=== PATIENT | male | born 1975 | race American Indian/Alaskan Native ===

== ENCOUNTER 2018-04-10 08:59 | Emergency (ER) | payer SELFPAY ==
[2018-04-10 09:24] VITALS: BP 138/91
[2018-04-10] MEDS ORDERED: TORADOL IM ONE (10:56)
--- NOTE | 2018-04-10 11:02 | Emergency Department Report ---
ED Back Pain/Injury HPI - General Chief Complaint: Extremity Injury, Lower Stated Complaint: RT HIP PAIN Time Seen by Provider: 04/10/18 10:47 Source: patient Limitations: No Limitations - History of Present Illness Initial Comments: This is a 42-year-old male nontoxic, well nourished in appearance, no acute signs of distress presents to the ED with c/o of acute on chronic lower back pain. Patient stated that the past 2 weeks he was moving around and developed this pain. Patient states has history of sciatica nerve pain which is similar symptoms as today. Patient stated that he was diagnosed with bulging L4-L5 and stated that he needs to have surgery. Patient states that pain radiates through to his right hip/lower extremity. Patient denies any trauma. Denies any bladder or bowel instability. Patient denies any urinary symptoms. Denies any fever, chills, nausea, vomiting, headache, stiff neck, chest pain or shortness of breath. Patient denies any numbness or tingling. Patient stated allergies to Aspirin but stated that he takes Motrin. MD Complaint: back pain -: week(s) (2) Similar Symptoms Previously: Yes Place: home Radiation: right leg Severity: mild Severity scale (0 -10): 8 Quality: aching Consistency: constant Improves With: immobilization, supine, sitting upright Worsens With: movement, walking Associated Symptoms: denies other symptoms. denies: confusion, weakness, chest pain, numbness, difficulty walking, cough, difficulty urinating, diaphoresis, incontinence, fever/chills, constipation, headaches, abdominal pain, loss of appetite, malaise, nausea/vomiting, rash, seizure, shortness of breath, syncope - Related Data Previous Rx's Medication Instructions Recorded Last Taken Type Cyclobenzaprine [Flexeril] 10 mg PO QHS PRN #10 tablet 04/10/18 Unknown Rx Ibuprofen [Motrin] 600 mg PO Q8H PRN #30 tablet 04/10/18 Unknown Rx Allergies Allergy/AdvReac Type Severity Reaction Status Date / Time aspirin AdvReac Nausea Verified 04/10/18 09:22 ED Review of Systems ROS: Stated complaint: RT HIP PAIN Other details as noted in HPI Constitutional: denies: chills, fever Eyes: denies: eye pain, eye discharge, vision change ENT: denies: ear pain, throat pain Respiratory: denies: cough, shortness of breath, wheezing Cardiovascular: denies: chest pain, palpitations Endocrine: no symptoms reported Gastrointestinal: denies: abdominal pain, nausea, diarrhea Genitourinary: denies: urgency, dysuria Musculoskeletal: back pain. denies: joint swelling, arthralgia Skin: denies: rash, lesions Neurological: denies: headache, weakness, paresthesias Psychiatric: denies: anxiety, depression Hematological/Lymphatic: denies: easy bleeding, easy bruising ED Past Medical Hx - Past Medical History Hx Hypertension: Yes Hx Diabetes: Yes - Surgical History Past Surgical History?: No - Social History Smoking Status: Never Smoker Substance Use Type: None - Medications Home Medications: Home Medications Medication Instructions Recorded Confirmed Last Taken Type Cyclobenzaprine [Flexeril] 10 mg PO QHS PRN #10 tablet 04/10/18 Unknown Rx Ibuprofen [Motrin] 600 mg PO Q8H PRN #30 tablet 04/10/18 Unknown Rx ED Physical Exam - General Limitations: No Limitations General appearance: alert, in no apparent distress - Head Head exam: Present: atraumatic, normocephalic - Eye Eye exam: Present: normal appearance - ENT ENT exam: Present: mucous membranes moist - Neck Neck exam: Present: normal inspection, full ROM. Absent: tenderness, meningismus, lymphadenopathy - Respiratory Respiratory exam: Present: normal lung sounds bilaterally. Absent: respiratory distress, wheezes, rales, rhonchi, stridor, chest wall tenderness, accessory muscle use, decreased breath sounds, prolonged expiratory - Cardiovascular Cardiovascular Exam: Present: regular rate, normal rhythm, normal heart sounds. Absent: irregular rhythm, systolic murmur, diastolic murmur, rubs, gallop - GI/Abdominal GI/Abdominal exam: Present: soft, normal bowel sounds. Absent: distended, tenderness, guarding, rebound, rigid, diminished bowel sounds - Rectal Rectal exam: Present: deferred - Extremities Exam Extremities exam: Present: normal inspection, full ROM, normal capillary refill. Absent: tenderness - Back Exam Back exam: Present: normal inspection, full ROM, paraspinal tenderness (right sided lumbar paraspinal). Absent: tenderness, CVA tenderness (R), CVA tenderness (L), muscle spasm, vertebral tenderness, rash noted - Expanded Back Exam Expanded Back exam: Absent: saddle anesthesia Back exam: Negative Straight Leg Raising: Left, Right - Neurological Exam Neurological exam: Present: alert, oriented X3, normal gait - Psychiatric Psychiatric exam: Present: normal affect, normal mood - Skin Skin exam: Present: warm, dry, intact, normal color. Absent: rash ED Course Vital Signs 04/10/18 09:23 Temperature 99.4 F Pulse Rate 105 H Respiratory 18 Rate Blood Pressure 138/91 O2 Sat by Pulse 100 Oximetry - Reevaluation(s) Reevaluation #1: 04/10/18 11:02 Patient is speaking in full sentences with no signs of distress noted. ED Medical Decision Making - Medical Decision Making This is a 42-year-old male that presents with low back strain. Patient is stable was examined by me. There is no spinal tenderness. There is no cauda equina syndrome during examination. No bladder or bowel instability. Patient received Toradol 30 mg IM in the ED which preceded his symptoms has resolved and subsided. Patient is discharged with muscle relaxant and Motrin. Patient was instructed not to operate any machinery while taking muscle relaxant as they cause her drowsiness. Patient was referred to Follow-up with a primary care doctor in 3-5 days or if symptoms worsen and continue return to emergency room as soon as possible. At time of discharge, the patient does not seem toxic or ill in appearance. No acute signs of distress noted. Patient agrees to discharge treatment plan of care. No further questions noted by the patient. This chart is dictated with using [employer] Critical care attestation.: If time is entered above; I have spent that time in minutes in the direct care of this critically ill patient, excluding procedure time. ED Disposition Clinical Impression: Low back strain Qualifiers: Encounter type: initial encounter Qualified Code(s): S39.012A - Strain of muscle, fascia and tendon of lower back, initial encounter Disposition: - TO HOME OR SELFCARE Is pt being admited?: No Does the pt Need Aspirin: No Condition: Stable Instructions: Low Back Strain (ED), Cyclobenzaprine (By mouth) Additional Instructions: Follow-up with your primary care doctor in 3-5 days or if symptoms worsen such as bladder or bowel stability, chest pain, short of breath, numbness or tingling sensation in extremities, headache, dizziness, visual changes, nausea vomiting, or abdominal pain, return back to emergency room as was possible. Take ibuprofen and Flexeril as prescribed. Do not operate heavy machinery while taking Flexeril due to sedation Prescriptions: Cyclobenzaprine [Flexeril] 10 mg PO QHS PRN #10 tablet PRN Reason: Muscle Spasm Ibuprofen [Motrin] 600 mg PO Q8H PRN #30 tablet PRN Reason: Pain Referrals: PRIMARY CAREMD [Primary Care Provider] - 3-5 Days ASH SHEPARD MD [Staff Physician] - 3-5 Days [facility] [Outside] - 3-5 Days [facility] [Outside] - 3-5 Days Forms: Work/School Release Form(ED)
== END 2018-04-10 11:19 | disposition home or self-care (01) ==
LOC: ED 08:59
DX: S39.012A Strain of muscle, fascia and tendon of lower back, initial encounter (principal); I10 Essential (primary) hypertension; E11.9 Type 2 diabetes mellitus without complications; Z88.6 Allergy status to analgesic agent; X58.XXXA Exposure to other specified factors, initial encounter; Y93.89 Activity, other specified; Y92.89 Other specified places as the place of occurrence of the external cause; Y99.8 Other external cause status
CPT/HCPCS: 96372; 99282; J1885

== ENCOUNTER 2020-08-15 16:51 | Inpatient (IN) | payer MEDICARE ==
--- NOTE | 2020-08-15 17:12 | Event Note ---
ED Screening Note Date of service: 08/15/20 Time: 17:11 ED Screening Note: Patient complains of right facial paralysis and right-sided headache x2 days History of hypertension, BP noted to be significantly elevated at 220/131 Patient states compliance with BP meds Denies history of stroke Negative Romberg on exam Patient unable to lift right eyebrow This initial assessment/diagnostic orders/clinical plan/treatment(s) is/are subject to change based on patients health status, clinical progression and re- assessment by fellow clinical providers in the ED. Further treatment and workup at subsequent clinical providers discretion. Patient/guardian urged not to elope from the ED as their condition may be serious if not clinically assessed and managed. Initial orders include: Labs CT head
[2020-08-15 17:31] LABS: Basophils # (Auto) 0.1 K/mm3 (0.0-0.1); Basophils % (Auto) 1.2 % (0.0-1.8); Eosinophils # (Auto) 0.1 K/mm3 (0.0-0.4); Eosinophils % (Auto) 1.6 % (0.0-4.3); Hematocrit 41.6 % (35.5-45.6); Hemoglobin 13.7 gm/dl (11.8-15.2); Lymphocytes # (Auto) 1.9 K/mm3 (1.2-5.4); Lymphocytes % (Auto) 33.1 % (13.4-35.0); Mean Corpuscular HGB Conc 33 % (32-34); Mean Corpuscular Volume 84 fl (84-94); Monocytes # (Auto) 0.5 K/mm3 (0.0-0.8); Monocytes % (Auto) 8.5 % (0.0-7.3); Platelet Count 206 K/mm3 (140-440); Red Blood Count 4.96 M/mm3 (3.65-5.03); Red Cell Distribution Width 14.5 % (13.2-15.2)
[2020-08-15 17:48] LABS: Alanine Aminotransferase 16 units/L (7-56); Albumin 3.8 g/dL (3.9-5); BUN/Creatinine Ratio 20; Blood Urea Nitrogen 18 mg/dL (9-20); Calcium 8.9 mg/dL (8.4-10.2); Hemolysis Index 12
--- NOTE | 2020-08-15 18:03 | Cat Scan Report ---
CT BRAIN: 08/15/2019 INDICATION / CLINICAL INFORMATION: Right facial paralysis. Right-sided headache.. COMPARISON: None available. FINDINGS: BRAIN/INTRACRANIAL STRUCTURES: Unenhanced CT images of the brain dated straight no evidence of acute intracranial abnormality. Ventricles and sulci are normal in size and shape. There is no CT evidence of acute ischemic injury, hemorrhage, or mass. There are no abnormal extra-ax ial fluid collections. EXTRACRANIAL STRUCTURES: Unremarkable. IMPRESSION: Negative unenhanced CT of the brain. All CT scans at this location are performed using dose reduction to ALARA by means of automated expos ure control. Signer Name: Raji Treviño MD Signed: 08/15/2020 5:58 PM Workstation Name: [id number]
[2020-08-15] MEDS ORDERED: METOPROLOL TARTRATE 5 MG/5 ML INJ IV ONE ×2 (20:35→22:14)
--- NOTE | 2020-08-15 20:39 | Emergency Department Report ---
ED Neuro Deficit HPI - General Chief Complaint: Neuro Symptoms/Deficit Stated Complaint: RT SIDE OF FACE Time Seen by Provider: 08/15/20 20:10 Source: patient Mode of arrival: Ambulatory Limitations: No Limitations - History of Present Illness Initial Comments: Patient is a 45-year-old male that presents emergency room with complaints of headache, right facial pain, right facial numbness, right facial droop and difficulty speaking. Patient states his speech is slurred. Patient states his last known well time was 2 days ago. Patient states his symptoms started 2 days ago. Patient denies chest pain or shortness of breath. Patient denies fever or chills. Patient denies cough. Patient's blood pressure found to be elevated in triage. Patient states he is compliant with all of his medications. Patient's past medical history of diabetes and hypertension. Patient states he visits his primary care regularly. Patient denies recent travel. Patient denies recent international travel. Patient denies exposure to the novel coronavirus. Patient denies sick contacts. Patient denies fever and chills. Patient denies cough. Patient denies diarrhea. Patient denies coming in contact with anybody with symptoms of the novel coronavirus. -: Sudden, days(s) (2 days) Location: right face Presenting Symptoms: Present: Sudden, Severe Headache, Facial Droop/Numbness History of same: No Place: home Severity: severe Quality: numb, constant Improves With: none Worsens With: none On Anticoagulants: Yes Context: sudden onset Associated Symptoms: headaches. denies: confusion, chest pain, cough, diaphoresis, fever/chills, loss of appetite, malise, nausea/vomiting, vertigo, seizures, shortness of breath, syncope, weakness Treatments Prior to Arrival: none - Related Data Home Medications: Home Medications Medication Instructions Recorded Confirmed Last Taken Eliquis 5 mg PO BID 08/16/20 08/16/20 08/15/20 08:00 5 mg Previous Rx's Medication Instructions Recorded Last Taken Type Cyclobenzaprine [Flexeril] 10 mg PO QHS PRN #10 tablet 04/10/18 Unknown Rx Ibuprofen [Motrin] 600 mg PO Q8H PRN #30 tablet 04/10/18 Unknown Rx Allergies/Adverse Reactions: Allergies Allergy/AdvReac Type Severity Reaction Status Date / Time aspirin AdvReac Nausea Verified 04/10/18 09:22 ED Review of Systems ROS: Stated complaint: RT SIDE OF FACE Other details as noted in HPI Constitutional: denies: chills, fever Eyes: denies: eye pain, eye discharge, vision change ENT: denies: ear pain, throat pain Respiratory: denies: cough, shortness of breath, wheezing Cardiovascular: denies: chest pain, palpitations Endocrine: no symptoms reported Gastrointestinal: denies: abdominal pain, nausea, diarrhea Genitourinary: denies: urgency, dysuria Musculoskeletal: denies: back pain, joint swelling, arthralgia Skin: denies: rash, lesions Neurological: as per HPI, headache, numbness. denies: weakness Psychiatric: denies: anxiety, depression Hematological/Lymphatic: denies: easy bleeding, easy bruising ED Past Medical Hx - Past Medical History Previous Medical History?: Yes Hx Hypertension: Yes Hx Diabetes: Yes - Surgical History Past Surgical History?: No - Family History Family history: no significant - Social History Smoking Status: Never Smoker Substance Use Type: None - Medications Home Medications: Home Medications Medication Instructions Recorded Confirmed Last Taken Type Cyclobenzaprine [Flexeril] 10 mg PO QHS PRN #10 tablet 04/10/18 Unknown Rx Ibuprofen [Motrin] 600 mg PO Q8H PRN #30 tablet 04/10/18 Unknown Rx Eliquis 5 mg PO BID 08/16/20 08/16/20 08/15/20 08:00 History 5 mg ED Neuro Physical Exam - General Limitations: No Limitations General appearance: alert, in no apparent distress Suspected Stroke: Yes - Head Head exam: Present: atraumatic, normocephalic - Eye Eye exam: Present: normal appearance - ENT ENT exam: Present: mucous membranes moist - Neck Neck exam: Present: normal inspection - Respiratory Respiratory exam: Present: normal lung sounds bilaterally. Absent: respiratory distress - Cardiovascular Cardiovascular Exam: Present: regular rate, normal rhythm. Absent: systolic murmur, diastolic murmur, rubs, gallop - GI/Abdominal GI/Abdominal exam: Present: soft, normal bowel sounds - Rectal Rectal exam: Present: deferred - Extremities Exam Extremities exam: Present: normal inspection - Back Exam Back exam: Present: normal inspection - Neurological Exam Neurological exam: Present: alert, oriented X3, normal gait - NIHSS Assessment Interval: Baseline 1a. Level of Consciousness: alert/keenly responsive 1b. LOC Questions: answers both correctly 1c. LOC Commands: performs tasks correctly 2. Best Gaze: normal 3. Visual: no visual loss 4. Facial Palsy: unilateral complete paralysis 5b. Motor Arm Right: no drift 5a. Motor Arm Left: no drift 6a. Motor Leg Left: no drift 6b. Motor Leg Right: no drift 7. Limb Ataxia: absent 8. Sensory: normal 9. Best Language: no aphasia 10. Dysarthria: mild/moderate dysarthria 11. Extinction/Inattention: no abnormality Total Score: 4 Stroke Severity: Minor Stroke - Psychiatric Psychiatric exam: Present: normal affect, normal mood - Skin Skin exam: Present: warm, dry, intact, normal color. Absent: rash ED Course Vital Signs 08/15/20 08/15/20 08/15/20 17:09 20:02 20:06 Temperature 98.4 F Pulse Rate 88 86 Respiratory 18 19 Rate Blood Pressure 220/131 182/115 Blood Pressure 182/115 [Left] O2 Sat by Pulse 99 97 Oximetry 08/15/20 08/15/20 08/15/20 20:15 20:31 20:45 Temperature Pulse Rate 85 81 Respiratory 21 18 Rate Blood Pressure 171/111 186/123 187/166 Blood Pressure [Left] O2 Sat by Pulse 94 96 97 Oximetry 08/15/20 08/15/20 08/15/20 20:49 21:01 21:15 Temperature Pulse Rate 83 Respiratory Rate Blood Pressure 186/123 180/130 181/120 Blood Pressure [Left] O2 Sat by Pulse 95 97 Oximetry 08/15/20 08/15/20 08/15/20 21:31 21:45 22:05 Temperature Pulse Rate 81 Respiratory Rate Blood Pressure 157/124 187/166 186/123 Blood Pressure [Left] O2 Sat by Pulse 94 97 Oximetry 08/15/20 08/15/20 08/15/20 22:23 22:31 22:45 Temperature Pulse Rate 81 85 85 Respiratory 17 16 Rate Blood Pressure 171/111 165/104 173/110 Blood Pressure [Left] O2 Sat by Pulse 94 Oximetry 08/15/20 08/15/20 08/15/20 23:01 23:11 23:21 Temperature Pulse Rate 83 84 79 Respiratory 13 11 L 11 L Rate Blood Pressure 193/123 193/123 193/123 Blood Pressure [Left] O2 Sat by Pulse 94 96 95 Oximetry 01/10/21 01/10/21 00:05 00:18 Temperature 97.7 F Pulse Rate 85 84 Respiratory 18 Rate Blood Pressure 154/101 Blood Pressure [Left] O2 Sat by Pulse 96 Oximetry - Reevaluation(s) Reevaluation #1: Initial evaluation done. Patient will see neurology. Neurology will be consulted. Patient's blood pressure is elevated. Patient will receive Lopressor. 08/15/20 20:15 Reevaluation #2: I discussed all results with patient. I discussed plan of care with patient. Patient agrees with plan of care and admission. Patient to be admitted to the hospitalist service. 08/15/20 21:18 Reevaluation #3: Patient's blood pressure still elevated. Patient will be given hydralazine. 08/15/20 22:02 Reevaluation #4: Patient's blood pressure still elevated. Patient will be given Lopressor 5 mg. Patient also complaining of an increase in pain in his back, patient states he has chronic back pain. Patient will be given Dilaudid 1 mg. 08/15/20 22:18 - Consultations Consultation #1: Teleneurology consulted. The neurologist will see the patient. 08/15/20 20:39 I discussed case with neurology. Neurology recommends admission and MRI in the morning. 08/15/20 21:01 Consultation #2: Hospitalist consulted for admission. Hospitalist to admit patient. 08/15/20 21:28 - Lab Data Result diagrams: 08/15/20 17:14 08/15/20 17:14 Lab Results 08/15/20 08/15/20 08/15/20 Range/Units 17:14 17:14 20:49 WBC 5.9 (4.5-11.0) K/mm3 RBC 4.96 (3.65-5.03) M/mm3 Hgb 13.7 (11.8-15.2) gm/dl Hct 41.6 (35.5-45.6) % MCV 84 (84-94) fl MCH 28 (28-32) pg MCHC 33 (32-34) % RDW 14.5 (13.2-15.2) % Plt Count 206 (140-440) K/mm3 Lymph % (Auto) 33.1 (13.4-35.0) % [place] % (Auto) 8.5 H (0.0-7.3) % Eos % (Auto) 1.6 (0.0-4.3) % Baso % (Auto) 1.2 (0.0-1.8) % Lymph # (Auto) 1.9 (1.2-5.4) K/mm3 [place] # (Auto) 0.5 (0.0-0.8) K/mm3 Eos # (Auto) 0.1 (0.0-0.4) K/mm3 Baso # (Auto) 0.1 (0.0-0.1) K/mm3 Seg Neutrophils % 55.6 (40.0-70.0) % Seg Neutrophils # 3.3 (1.8-7.7) K/mm3 PT 13.3 (12.2-14.9) Sec. INR 1.02 (0.87-1.13) APTT 30.0 (24.2-36.6) Sec. Sodium 137 (137-145) mmol/L Potassium 4.0 (3.6-5.0) mmol/L Chloride 100.4 (98-107) mmol/L Carbon Dioxide 26 (22-30) mmol/L Anion Gap 15 mmol/L BUN 18 (9-20) mg/dL Creatinine 0.9 (0.8-1.3) mg/dL Estimated GFR > 60 ml/min BUN/Creatinine Ratio 20 % Glucose 288 H (75-100) mg/dL Calcium 8.9 (8.4-10.2) mg/dL Total Bilirubin 0.20 (0.1-1.2) mg/dL AST 13 (5-40) units/L ALT 16 (7-56) units/L Alkaline Phosphatase 81 (35-129) units/L Total Protein 6.7 (6.3-8.2) g/dL Albumin 3.8 L (3.9-5) g/dL Albumin/Globulin Ratio 1.3 % - Radiology Data Radiology results: report reviewed CT BRAIN: 08/15/2019 INDICATION / CLINICAL INFORMATION: Right facial paralysis. Right-sided headache.. COMPARISON: None available. FINDINGS: BRAIN/INTRACRANIAL STRUCTURES: Unenhanced CT images of the brain dated straight no evidence of acute intracranial abnormality. Ventricles and sulci are normal in size and shape. There is no CT evidence of acute ischemic injury, hemorrhage, or mass. There are no abnormal extra- axial fluid collections. EXTRACRANIAL STRUCTURES: Unremarkable. IMPRESSION: Negative unenhanced CT of the brain. - Medical Decision Making Patient is a 45-year-old male that presents emergency room with complaints of right facial droop and difficulty speaking and difficulty closing his eye. Patient has history of diabetes and patient is high risk for stroke so the pat ient was outside of [facility] as outpatient. ER stay. Patient patient had a head CT which was negative for acute finding patient had labs which were essentially markable. Hospitalist service for further treatment - Differential Diagnosis Araya's palsy, CVA, neuropathy Critical Care Time: Yes Critical care time in (mins) excluding proc time.: 35 Critical care attestation.: If time is entered above; I have spent that time in minutes in the direct care of this critically ill patient, excluding procedure time. Critical Care Time: 35 minutes ED Disposition Clinical Impression: Hypertensive emergency, Facial weakness, Facial droop, Facial numbness Stroke Qualifiers: CVA mechanism: unspecified Qualified Code(s): I63.9 - Cerebral infarction, unspecified Disposition: DC-09 OP ADMIT IP TO THIS HOSP Is pt being admited?: Yes Does the pt Need Aspirin: No Condition: Critical Time of Disposition: 22:13
[2020-08-15 21:13] LABS: INR 1.02 (0.87-1.13)
--- NOTE | 2020-08-15 21:33 | Emergency Department Report ---
ED Neuro Deficit HPI - General Chief Complaint: Neuro Symptoms/Deficit Stated Complaint: RT SIDE OF FACE Time Seen by Provider: 08/15/20 17:10 Source: patient Mode of arrival: Ambulatory Limitations: No Limitations - History of Present Illness Initial Comments: [facility] TeleNeurology Consult Services Stat Consult Date of Service: 08/15/2020 20:32:25 Impression: I63.9 - Cerebrovascular accident (CVA), unspecified mechanism (HCC) Comments/Sign-Out: Exam shows right facial weakness, right facial numbness and mild dysarthria. Concern for a small stroke. Etiology either small vessel, cardioembolic or artery to artery. Recommend admission for further work up. CT HEAD: Showed No Acute Hemorrhage or Acute Core Infarct Metrics: [employer] Notification Time: 08/15/2020 20:30:57 Stamp Time: 08/15/2020 20:32:25 Callback Response Time: 08/15/2020 20:33:28 Our recommendations are outlined below. Recommendations: -Continue Eliquis ( he is 2 days out from symptoms and has been taking it with no hemorrhage on CT head therefore would not hold at this time) -Check Hgb A1c and lipid panel -dysphagia screen -Telemetry -Glucose control per primary team, avoid hypo- and hyperglycemia Imaging Studies: MRI Head Without Contrast MRA Head and Neck Without Contrast When Available - Stroke Protocol Echocardiogram - Transthoracic Echocardiogram Therapies: Physical Therapy, Occupational Therapy, Speech Therapy Assessment When Applicable Disposition: Neurology Follow Up Recommended Sign Out: Discussed with Emergency Department Provider ----- Chief Complaint: right facial droop and slurred speech History of Present Illness: Patient is a 45 year old Male. 45 yo M with history of htn, hl, DVT on Eliquis and DM who is presenting with right facial droop and numbness and slurred speech. Patient states that he couldn't feel the right side side of his face. He noticed weakness as well on the side with drooling. His words have been slurring since it started. It was a sudden onset 2 days ago when it occurred. Past Medical History: Hypertension Diabetes Mellitus Hyperlipidemia There is NO history of Stroke Anticoagulant use: Eliquis Antiplatelet use: No Examination: BP(182/115), Pulse(86), Blood Glucose(288) 1A: Level of Consciousness - Alert; keenly responsive + 0 1B: Ask Month and Age - Both Questions Right + 0 1C: Blink Eyes & Squeeze Hands - Performs Both Tasks + 0 2: Test Horizontal Extraocular Movements - Normal + 0 3: Test Visual Marks - No Visual Loss + 0 4: Test Facial Palsy (Use Grimace if Obtunded) - Partial paralysis (lower face) + 2 5A: Test Left Arm Motor Drift - No Drift for 10 Seconds + 0 5B: Test Right Arm Motor Drift - No Drift for 10 Seconds + 0 6A: Test Left Leg Motor Drift - No Drift for 5 Seconds + 0 6B: Test Right Leg Motor Drift - No Drift for 5 Seconds + 0 7: Test Limb Ataxia (FNF/Heel-Yo) - No Ataxia + 0 8: Test Sensation - Mild-Moderate Loss: Can Sense Being Touched + 1 9: Test Language/Aphasia - Normal; No aphasia + 0 10: Test Dysarthria - Mild-Moderate Dysarthria: Slurring but can be understood + 1 11: Test Extinction/Inattention - No abnormality + 0 NIHSS Score: 4 Patient/Family was informed the Neurology Consult would happen via TeleHealth consult by way of interactive audio and video telecommunications and consented to receiving care in this manner. Due to the immediate potential for life-threatening deterioration due to underlying acute neurologic illness, I spent 25 minutes providing critical care. This time includes time for face to face visit via telemedicine, review of medical records, imaging studies and discussion of findings with providers, the patient and/or family. Dr Eunice Bucio [facility] Case [id number] Location: right face History of same: No Place: home Severity: severe Quality: numb, constant Improves With: none Worsens With: none On Anticoagulants: Yes Treatments Prior to Arrival: none - Related Data Home Medications: Previous Rx's Medication Instructions Recorded Last Taken Type Cyclobenzaprine [Flexeril] 10 mg PO QHS PRN #10 tablet 04/10/18 Unknown Rx Ibuprofen [Motrin] 600 mg PO Q8H PRN #30 tablet 04/10/18 Unknown Rx Allergies/Adverse Reactions: Allergies Allergy/AdvReac Type Severity Reaction Status Date / Time aspirin AdvReac Nausea Verified 04/10/18 09:22 ED Review of Systems ROS: Stated complaint: RT SIDE OF FACE Other details as noted in HPI Constitutional: denies: chills, fever Eyes: denies: eye pain, eye discharge, vision change ENT: denies: ear pain, throat pain Respiratory: denies: cough, shortness of breath, wheezing Cardiovascular: denies: chest pain, palpitations Endocrine: no symptoms reported Gastrointestinal: denies: abdominal pain, nausea, diarrhea Genitourinary: denies: urgency, dysuria Musculoskeletal: denies: back pain, joint swelling, arthralgia Skin: denies: rash, lesions Neurological: as per HPI, headache, numbness. denies: weakness Psychiatric: denies: anxiety, depression Hematological/Lymphatic: denies: easy bleeding, easy bruising ED Past Medical Hx - Past Medical History Previous Medical History?: Yes Hx Hypertension: Yes Hx Diabetes: Yes - Surgical History Past Surgical History?: No - Social History Smoking Status: Never Smoker Substance Use Type: None - Medications Home Medications: Home Medications Medication Instructions Recorded Confirmed Last Taken Type Cyclobenzaprine [Flexeril] 10 mg PO QHS PRN #10 tablet 04/10/18 Unknown Rx Ibuprofen [Motrin] 600 mg PO Q8H PRN #30 tablet 04/10/18 Unknown Rx ED Neuro Physical Exam - General Limitations: No Limitations General appearance: alert, in no apparent distress Suspected Stroke: Yes - NIHSS Assessment Interval: Baseline 1a. Level of Consciousness: alert/keenly responsive 1b. LOC Questions: answers both correctly 1c. LOC Commands: performs tasks correctly 2. Best Gaze: normal 3. Visual: no visual loss 4. Facial Palsy: partial paralysis 5b. Motor Arm Right: no drift 5a. Motor Arm Left: no drift 6a. Motor Leg Left: no drift 6b. Motor Leg Right: no drift 7. Limb Ataxia: absent 8. Sensory: mild/moderate sensory loss 9. Best Language: no aphasia 10. Dysarthria: mild/moderate dysarthria 11. Extinction/Inattention: no abnormality Total Score: 4 Stroke Severity: Minor Stroke ED Course Vital Signs 08/15/20 08/15/20 08/15/20 17:09 20:02 20:06 Temperature 98.4 F Pulse Rate 88 86 Respiratory 18 19 Rate Blood Pressure 220/131 182/115 Blood Pressure 182/115 [Left] O2 Sat by Pulse 99 97 Oximetry 08/15/20 08/15/20 08/15/20 20:15 20:31 20:49 Temperature Pulse Rate 85 81 83 Respiratory 21 18 Rate Blood Pressure 171/111 186/123 186/123 Blood Pressure [Left] O2 Sat by Pulse 94 96 Oximetry - Lab Data Result diagrams: 08/15/20 17:14 08/15/20 17:14 Lab Results 08/15/20 08/15/20 08/15/20 Range/Units 17:14 17:14 20:49 WBC 5.9 (4.5-11.0) K/mm3 RBC 4.96 (3.65-5.03) M/mm3 Hgb 13.7 (11.8-15.2) gm/dl Hct 41.6 (35.5-45.6) % MCV 84 (84-94) fl MCH 28 (28-32) pg MCHC 33 (32-34) % RDW 14.5 (13.2-15.2) % Plt Count 206 (140-440) K/mm3 Lymph % (Auto) 33.1 (13.4-35.0) % [place] % (Auto) 8.5 H (0.0-7.3) % Eos % (Auto) 1.6 (0.0-4.3) % Baso % (Auto) 1.2 (0.0-1.8) % Lymph # (Auto) 1.9 (1.2-5.4) K/mm3 [place] # (Auto) 0.5 (0.0-0.8) K/mm3 Eos # (Auto) 0.1 (0.0-0.4) K/mm3 Baso # (Auto) 0.1 (0.0-0.1) K/mm3 Seg Neutrophils % 55.6 (40.0-70.0) % Seg Neutrophils # 3.3 (1.8-7.7) K/mm3 PT 13.3 (12.2-14.9) Sec. INR 1.02 (0.87-1.13) APTT 30.0 (24.2-36.6) Sec. Sodium 137 (137-145) mmol/L Potassium 4.0 (3.6-5.0) mmol/L Chloride 100.4 (98-107) mmol/L Carbon Dioxide 26 (22-30) mmol/L Anion Gap 15 mmol/L BUN 18 (9-20) mg/dL Creatinine 0.9 (0.8-1.3) mg/dL Estimated GFR > 60 ml/min BUN/Creatinine Ratio 20 % Glucose 288 H (75-100) mg/dL Calcium 8.9 (8.4-10.2) mg/dL Total Bilirubin 0.20 (0.1-1.2) mg/dL AST 13 (5-40) units/L ALT 16 (7-56) units/L Alkaline Phosphatase 81 (35-129) units/L Total Protein 6.7 (6.3-8.2) g/dL Albumin 3.8 L (3.9-5) g/dL Albumin/Globulin Ratio 1.3 % Critical care attestation.: If time is entered above; I have spent that time in minutes in the direct care of this critically ill patient, excluding procedure time. ED Disposition Clinical Impression: Stroke Disposition: DC-09 OP ADMIT IP TO THIS HOSP Is pt being admited?: Yes Condition: Stable Instructions: Hypertension (ED) Referrals: PRIMARY CARE, [Primary Care Provider] - 3-5 Days
[2020-08-15] MEDS ORDERED: hydrALAZINE 20 MG/1 ML INJ IV ONE (22:01)
[2020-08-15] MEDS ORDERED: HYDROmorphone 1 MG/1 ML INJ ONE (22:12)
[2020-08-15] MEDS ORDERED: ONDANSETRON 4 MG/2 ML INJ ONE (22:12)
[2020-08-15] MEDS ORDERED: HYDROmorphone 1 MG/1 ML INJ IV ONE (22:14)
[2020-08-15] MEDS ORDERED: ONDANSETRON 4 MG/2 ML INJ IV ONE (22:14)
[2020-08-15] MEDS ORDERED: METOCLOPRAMIDE 10 MG TAB PO PRN (22:21)
[2020-08-15] MEDS ORDERED: PROMETHAZINE 25 MG RECT SUPP PR PRN (22:21)
[2020-08-15] MEDS ORDERED: ONDANSETRON 4 MG/2 ML INJ IV PRN ×2 (22:21)
[2020-08-15] MEDS ORDERED: ACETAMINOPHEN 325 MG TAB PO PRN ×2 (22:21)
[2020-08-15] MEDS ORDERED: MORPHINE 2 MG/1 ML INJ IV PRN (22:21)
[2020-08-15] MEDS ORDERED: DEXTROSE 50% IN WATER (25GM) 50 ML SYRINGE IV PRN (22:21)
[2020-08-15] MEDS ORDERED: MAGNESIUM HYDROXIDE (MOM) ORAL LIQD UDC PO PRN ×2 (22:21)
--- NOTE | 2020-08-15 22:32 | History and Physical Report ---
History of Present Illness Date of examination: 08/15/20 Date of admission: 08/15/2020 Chief complaint: Headache Facial Numbness History of present illness: 45-year-old male with known history of hypertension and diabetes mellitus presenting to the emergency room today complaining of headache, right-sided facial numbness and pain and difficulty speaking. Patient indicates a speech has been slurred . Symptoms have been ongoing for the past 48 hours. He denies any fever or chills, no chest pain or shortness of breath, no nausea vomiting, no blurry vision, no diaphoresis. Patient denies any sick contacts and no recent travel, denies any contact with anyone with COVID-19. Upon arrival in the emergency room today blood pressure was elevated. He has been compliant with his medications and also indicates that he follows up with his primary care physician regularly. Work-up in the emergency room today CT scan of the head is unremarkable. Patient was evaluated by the teleneurologist and recommendation is to have patient worked up for CVA. Past History Past Medical History: diabetes, hypertension Past Surgical History: No surgical history Social history: no significant social history Family history: no significant family history Medications and Allergies Allergies Allergy/AdvReac Type Severity Reaction Status Date / Time aspirin AdvReac Nausea Verified 04/10/18 09:22 Home Medications Medication Instructions Recorded Confirmed Last Taken Type Cyclobenzaprine [Flexeril] 10 mg PO QHS PRN #10 tablet 04/10/18 Unknown Rx Ibuprofen [Motrin] 600 mg PO Q8H PRN #30 tablet 04/10/18 Unknown Rx Active Meds: Active Medications Acetaminophen (Acetaminophen 325 Mg Tab) 650 mg PO Q4H PRN PRN Reason: Pain, Mild (1-3) Atorvastatin Calcium (Atorvastatin 40 Mg Tab) 40 mg PO QHS MG Bisacodyl (Bisacodyl 10 Mg Rect Supp) 10 mg [place] QDAY PRN PRN Reason: Constipation Dextrose (Dextrose 50% In Water (25gm) 50 Ml Syringe) 50 ml IV Q30MIN PRN; Protocol PRN Reason: Hypoglycemia Dextrose (Dextrose 50% In Water (25gm) 50 Ml Syringe) 50 ml IV Q30MIN PRN; Protocol PRN Reason: Hypoglycemia Hydralazine HCl (Hydralazine 20 Mg/1 Ml Inj) 10 mg IV Q4HR PRN PRN Reason: Blood Pressure Magnesium Hydroxide (Magnesium Hydroxide (Mom) Oral Liqd Udc) 30 ml PO Q4H PRN PRN Reason: Constipation Magnesium Hydroxide (Magnesium Hydroxide (Mom) Oral Liqd Udc) 30 ml PO Q4H PRN PRN Reason: Constipation Metoclopramide HCl (Metoclopramide 10 Mg Tab) 10 mg PO Q6H PRN PRN Reason: Nausea And Vomiting Morphine Sulfate (Morphine 2 Mg/1 Ml Inj) 2 mg IV Q4H PRN PRN Reason: Pain, Moderate (4-6) Ondansetron HCl (Ondansetron 4 Mg/2 Ml Inj) 4 mg IV Q8H PRN PRN Reason: Nausea And Vomiting Promethazine HCl (Promethazine 25 Mg Rect Supp) 25 mg [place] Q6H PRN PRN Reason: Nausea And Vomiting Sodium Chloride (Sodium Chloride 0.9% 10 Ml Flush Syringe) 10 ml INJ PRN PRN PRN Reason: LINE FLUSH Sodium Chloride (Sodium Chloride 0.9% 10 Ml Flush Syringe) 10 ml IV BID MG Sodium Chloride (Sodium Chloride 0.9% 10 Ml Flush Syringe) 10 ml IV PRN PRN PRN Reason: LINE FLUSH Review of Systems Constitutional: no fever, no chills Ears, nose, mouth and throat: no nasal congestion, no sore throat Cardiovascular: no chest pain, no palpitations Respiratory: no cough, no shortness of breath Gastrointestinal: no abdominal pain, no nausea, no vomiting, no diarrhea Genitourinary Male: no dysuria, no hematuria, no flank pain Musculoskeletal: no neck pain, no low back pain Integumentary: no rash, no pruritis Neurological: numbness (Facial numbness), change in speech, no headaches, no confusion Psychiatric: no anxiety, no depression Exam - Constitutional Vitals: Temp Pulse Resp BP Pulse Ox 98.4 F 81 18 171/111 97 08/15/20 17:09 08/15/20 22:23 08/15/20 20:31 08/15/20 22:23 08/15/20 21:45 General appearance: Present: no acute distress, well-nourished, obese - EENT Eyes: Present: PERRL, EOM intact. Absent: scleral icterus ENT: hearing intact, clear oral mucosa, dentition normal - Neck Neck: Present: supple, normal ROM - Respiratory Respiratory effort: normal Respiratory: bilateral: CTA - Cardiovascular Rhythm: regular Heart Sounds: Present: S1 & S2. Absent: gallop, systolic murmur, diastolic murmur - Extremities Extremities: no ischemia, pulses intact, pulses symmetrical, No edema, Full ROM Peripheral Pulses: within normal limits - Abdominal General gastrointestinal: Present: soft, non-tender, non-distended, normal bowel sounds. Absent: mass - Integumentary Integumentary: Present: clear, warm, dry. Absent: rash - Musculoskeletal Musculoskeletal: strength equal bilaterally - Psychiatric Psychiatric: appropriate mood/affect, intact judgment & insight, memory intact, cooperative - Neurologic Neurologic: CNII-XII intact, focal deficits (Facial assymetry, right sided facial droop.), moves all extremities Results - Labs CBC & Chem 7: 08/15/20 17:14 08/15/20 17:14 Labs: Abnormal lab results 08/15/20 08/15/20 Range/Units 17:14 17:14 [place] % (Auto) 8.5 H (0.0-7.3) % Glucose 288 H (75-100) mg/dL Albumin 3.8 L (3.9-5) g/dL Assessment and Plan - Patient Problems (1) CVA (cerebral vascular accident) Current Visit: Yes Status: Acute Plan to address problem: Patient admitted and will be worked up for possible CVA. He is allergic to aspirin. We will schedule patient for MRI and carotid Doppler. We will request neurology evaluation and follow-up. (2) Hypertensive emergency Current Visit: Yes Status: Acute Plan to address problem: We will resume routine home medications and monitor vital signs closely. (3) DVT prophylaxis Current Visit: Yes Status: Acute Plan to address problem: Patient on anticoagulation. (4) Full code status Current Visit: Yes Status: Acute Plan to address problem: Patient is a full code.
[2020-08-15] MEDS ORDERED: cloNIDine 0.2 MG TAB PO ONE (23:04)
[2020-08-16 09:03] LABS: Basophils % (Auto) 0.5 % (0.0-1.8); Eosinophils # (Auto) 0.1 K/mm3 (0.0-0.4); Eosinophils % (Auto) 1.1 % (0.0-4.3); Hematocrit 39.2 % (35.5-45.6); Hemoglobin 13.2 gm/dl (11.8-15.2); Lymphocytes # (Auto) 1.6 K/mm3 (1.2-5.4); Lymphocytes % (Auto) 26.2 % (13.4-35.0); Mean Corpuscular HGB Conc 34 % (32-34); Mean Corpuscular Volume 84 fl (84-94); Monocytes # (Auto) 0.6 K/mm3 (0.0-0.8); Monocytes % (Auto) 9.4 % (0.0-7.3); Platelet Count 185 K/mm3 (140-440); Red Blood Count 4.65 M/mm3 (3.65-5.03); Red Cell Distribution Width 14.4 % (13.2-15.2)
[2020-08-16 09:14] LABS: BUN/Creatinine Ratio 21; Blood Urea Nitrogen 17 mg/dL (9-20); Calcium 8.5 mg/dL (8.4-10.2); HDL Cholesterol 33 mg/dL (40-59); Hemolysis Index 8; LDL Cholesterol,Direct 62 mg/dL (50-130)
[2020-08-16] MEDS: APIXABAN 5 MG TAB PO SCH ×2 (09:34→21:09)
--- NOTE | 2020-08-16 10:11 | Progress Note ---
Assessment and Plan Assessment and plan: CVA. Follow-up MRI, carotid Doppler and echocardiogram. Neurology evaluation pending. ? Araya's palsy. Start prednisone 60 mg daily x5 days and then taper. Await neurology evaluation. Accelerated hypertension. Blood pressure is better controlled. Start Procardia 60 mg p.o. twice daily History Interval history: No new issues overnight. Hospitalist Physical - Constitutional Vitals: Temp Pulse Resp BP Pulse Ox 97.5 F L 74 17 151/93 91 08/16/20 03:32 08/16/20 03:32 08/16/20 03:32 08/16/20 03:32 08/16/20 03:32 General appearance: Present: no acute distress, well-nourished, obese - EENT Eyes: Present: PERRL, EOM intact ENT: hearing intact, clear oral mucosa, dentition normal - Neck Neck: Present: supple, normal ROM - Respiratory Respiratory effort: normal Respiratory: bilateral: CTA - Cardiovascular Rhythm: regular Heart Sounds: Present: S1 & S2. Absent: gallop, rub - Extremities Extremities: no ischemia, No edema, Full ROM - Abdominal General gastrointestinal: soft, non-tender, non-distended, normal bowel sounds - Integumentary Integumentary: Present: clear, warm, dry - Neurologic Neurologic: CNII-XII intact, moves all extremities Results - Labs CBC & Chem 7: 08/16/20 07:26 08/16/20 07:26 Labs: Laboratory Last Values WBC 6.1 K/mm3 (4.5-11.0) 08/16/20 07:26 RBC 4.65 M/mm3 (3.65-5.03) 08/16/20 07:26 Hgb 13.2 gm/dl (11.8-15.2) 08/16/20 07:26 Hct 39.2 % (35.5-45.6) 08/16/20 07:26 MCV 84 fl (84-94) 08/16/20 07:26 MCH 28 pg (28-32) 08/16/20 07:26 MCHC 34 % (32-34) 08/16/20 07:26 RDW 14.4 % (13.2-15.2) 08/16/20 07:26 Plt Count 185 K/mm3 (140-440) 08/16/20 07:26 Lymph % (Auto) 26.2 % (13.4-35.0) 08/16/20 07:26 [place] % (Auto) 9.4 % (0.0-7.3) H 08/16/20 07:26 Eos % (Auto) 1.1 % (0.0-4.3) 08/16/20 07:26 Baso % (Auto) 0.5 % (0.0-1.8) 08/16/20 07:26 Lymph # (Auto) 1.6 K/mm3 (1.2-5.4) 08/16/20 07:26 [place] # (Auto) 0.6 K/mm3 (0.0-0.8) 08/16/20 07:26 Eos # (Auto) 0.1 K/mm3 (0.0-0.4) 08/16/20 07:26 Baso # (Auto) 0.0 K/mm3 (0.0-0.1) 08/16/20 07:26 Seg Neutrophils % 62.8 % (40.0-70.0) 08/16/20 07:26 Seg Neutrophils # 3.8 K/mm3 (1.8-7.7) 08/16/20 07:26 PT 13.3 Sec. (12.2-14.9) 08/15/20 20:49 INR 1.02 (0.87-1.13) 08/15/20 20:49 APTT 30.0 Sec. (24.2-36.6) 08/15/20 20:49 Sodium 134 mmol/L (137-145) L 08/16/20 07:26 Potassium 4.5 mmol/L (3.6-5.0) 08/16/20 07:26 Chloride 98.6 mmol/L (98-107) 08/16/20 07:26 Carbon Dioxide 27 mmol/L (22-30) 08/16/20 07:26 Anion Gap 13 mmol/L 08/16/20 07:26 BUN 17 mg/dL (9-20) 08/16/20 07:26 Creatinine 0.8 mg/dL (0.8-1.3) 08/16/20 07:26 Estimated GFR > 60 ml/min 08/16/20 07:26 BUN/Creatinine Ratio 21 % 08/16/20 07:26 Glucose 394 mg/dL (75-100) H 08/16/20 07:26 POC Glucose 366 mg/dL (70-105) H 08/16/20 07:40 Calcium 8.5 mg/dL (8.4-10.2) 08/16/20 07:26 Total Bilirubin 0.20 mg/dL (0.1-1.2) 08/15/20 17:14 AST 13 units/L (5-40) 08/15/20 17:14 ALT 16 units/L (7-56) 08/15/20 17:14 Alkaline Phosphatase 81 units/L (35-129) 08/15/20 17:14 Total Protein 6.7 g/dL (6.3-8.2) 08/15/20 17:14 Albumin 3.8 g/dL (3.9-5) L 08/15/20 17:14 Albumin/Globulin Ratio 1.3 % 08/15/20 17:14 Triglycerides 197 mg/dL (2-149) H 08/16/20 07:26 Cholesterol 119 mg/dL (50-199) 08/16/20 07:26 LDL Cholesterol Direct 62 mg/dL (50-130) 08/16/20 07:26 HDL Cholesterol 33 mg/dL (40-59) L 08/16/20 07:26 Cholesterol/HDL Ratio 3.60 % 08/16/20 07:26 [place]/IV: IV Catheter Type [Right Hand] INT / Saline Lock Active Medications - Current Medications Current Medications: Generic Name Dose Route Start Last Admin Trade Name Freq PRN Reason Stop Dose Admin Acetaminophen 650 mg 08/15/20 22:21 Acetaminophen 325 Mg Tab PO Q4H PRN Pain, Mild (1-3) Apixaban 5 mg 08/16/20 10:00 08/16/20 09:34 Apixaban 5 Mg Tab PO 5 mg BID MG Administration Atorvastatin Calcium 40 mg 08/16/20 22:00 Atorvastatin 40 Mg Tab PO QHS MG Bisacodyl 10 mg 08/15/20 22:21 Bisacodyl 10 Mg Rect Supp [place] QDAY PRN Constipation Dextrose 0 ml 08/15/20 22:21 Dextrose 50% In Water (25gm) 50 Ml Syringe IV Q30MIN PRN Hypoglycemia Protocol Hydralazine HCl 10 mg 08/15/20 22:27 Hydralazine 20 Mg/1 Ml Inj IV Q4H PRN Blood Pressure Magnesium Hydroxide 30 ml 08/15/20 22:21 Magnesium Hydroxide (Mom) Oral Liqd Udc PO Q4H PRN Constipation Metoclopramide HCl 10 mg 08/15/20 22:21 Metoclopramide 10 Mg Tab PO Q6H PRN Nausea And Vomiting Morphine Sulfate 2 mg 08/15/20 22:21 Morphine 2 Mg/1 Ml Inj IV Q4H PRN Pain, Moderate (4-6) Ondansetron HCl 4 mg 08/15/20 22:21 Ondansetron 4 Mg/2 Ml Inj IV Q8H PRN Nausea And Vomiting Promethazine HCl 25 mg 08/15/20 22:21 Promethazine 25 Mg Rect Supp [place] Q6H PRN Nausea And Vomiting Sodium Chloride 10 ml 08/15/20 22:21 Sodium Chloride 0.9% 10 Ml Flush Syringe IV PRN PRN LINE FLUSH Sodium Chloride 10 ml 08/16/20 10:00 08/16/20 09:33 Sodium Chloride 0.9% 10 Ml Flush Syringe IV 10 ml BID MG Administration
[2020-08-16 10:27] LABS: INR 0.91 (0.87-1.13)
[2020-08-16] MEDS: hydrALAZINE 20 MG/1 ML INJ IV PRN ×2 (18:06→21:09)
[2020-08-16] MEDS: NIFEdipine XL 60 MG TAB PO SCH (21:09)
[2020-08-16] MEDS: INSULIN GLARGINE 100 UNITS/ML SUB-Q SCH (21:09)
[2020-08-17] MEDS: predniSONE 20 MG TAB PO SCH (09:04)
[2020-08-17] MEDS: APIXABAN 5 MG TAB PO SCH ×2 (09:04→21:17)
[2020-08-17] MEDS: INSULIN GLARGINE 100 UNITS/ML SUB-Q SCH ×2 (09:06→21:17)
[2020-08-17] MEDS: INSULIN LISPRO 100 UNIT/ML VIAL 3 mL SUB-Q SCH ×3 (09:06→16:22)
[2020-08-17] MEDS: NIFEdipine XL 60 MG TAB PO SCH ×2 (09:06→21:17)
--- NOTE | 2020-08-17 09:07 | Progress Note ---
Assessment and Plan Assessment and plan: CVA. Follow-up MRI, carotid Doppler and echocardiogram. Neurology evaluation pending. ? Araya's palsy. Start prednisone 60 mg daily x5 days and then taper. Await neurology evaluation. Accelerated hypertension. Blood pressure is better controlled. Start Procardia 60 mg p.o. twice daily 08/17/2020. Patient with much better control blood pressure this morning. Continue Procardia. Monitor BP closely. Prednisone 60 mg initiated for ? Araya's palsy. Continue stroke work-up. Follow-up carotid Doppler and echocardiogram. Patient refuses MRI because of claustrophobia. However, patient amenable to CTA head and neck. Neurology consultation pending History Interval history: No new issues overnight. Hospitalist Physical - Constitutional Vitals: Temp Pulse Resp BP Pulse Ox 98.5 F 89 20 134/86 92 08/17/20 08:02 08/17/20 08:02 08/17/20 08:02 08/17/20 08:02 08/17/20 08:02 General appearance: Present: no acute distress, well-nourished, obese - EENT Eyes: Present: PERRL, EOM intact ENT: hearing intact, clear oral mucosa, dentition normal - Neck Neck: Present: supple, normal ROM - Respiratory Respiratory effort: normal Respiratory: bilateral: CTA - Cardiovascular Rhythm: regular Heart Sounds: Present: S1 & S2. Absent: gallop, rub - Extremities Extremities: no ischemia, No edema, Full ROM - Abdominal General gastrointestinal: soft, non-tender, non-distended, normal bowel sounds - Integumentary Integumentary: Present: clear, warm, dry - Neurologic Neurologic: CNII-XII intact, moves all extremities Results - Labs CBC & Chem 7: 08/16/20 07:26 08/16/20 07:26 Labs: Laboratory Last Values WBC 6.1 K/mm3 (4.5-11.0) 08/16/20 07:26 RBC 4.65 M/mm3 (3.65-5.03) 08/16/20 07:26 Hgb 13.2 gm/dl (11.8-15.2) 08/16/20 07:26 Hct 39.2 % (35.5-45.6) 08/16/20 07:26 MCV 84 fl (84-94) 08/16/20 07:26 MCH 28 pg (28-32) 08/16/20 07:26 MCHC 34 % (32-34) 08/16/20 07:26 RDW 14.4 % (13.2-15.2) 08/16/20 07:26 Plt Count 185 K/mm3 (140-440) 08/16/20 07:26 Lymph % (Auto) 26.2 % (13.4-35.0) 08/16/20 07:26 [place] % (Auto) 9.4 % (0.0-7.3) H 08/16/20 07:26 Eos % (Auto) 1.1 % (0.0-4.3) 08/16/20 07:26 Baso % (Auto) 0.5 % (0.0-1.8) 08/16/20 07:26 Lymph # (Auto) 1.6 K/mm3 (1.2-5.4) 08/16/20 07:26 [place] # (Auto) 0.6 K/mm3 (0.0-0.8) 08/16/20 07:26 Eos # (Auto) 0.1 K/mm3 (0.0-0.4) 08/16/20 07:26 Baso # (Auto) 0.0 K/mm3 (0.0-0.1) 08/16/20 07:26 Seg Neutrophils % 62.8 % (40.0-70.0) 08/16/20 07:26 Seg Neutrophils # 3.8 K/mm3 (1.8-7.7) 08/16/20 07:26 PT 12.1 Sec. (12.2-14.9) L 08/16/20 07:26 INR 0.91 (0.87-1.13) 08/16/20 07:26 APTT 30.0 Sec. (24.2-36.6) 08/15/20 20:49 Sodium 134 mmol/L (137-145) L 08/16/20 07:26 Potassium 4.5 mmol/L (3.6-5.0) 08/16/20 07:26 Chloride 98.6 mmol/L (98-107) 08/16/20 07:26 Carbon Dioxide 27 mmol/L (22-30) 08/16/20 07:26 Anion Gap 13 mmol/L 08/16/20 07:26 BUN 17 mg/dL (9-20) 08/16/20 07:26 Creatinine 0.8 mg/dL (0.8-1.3) 08/16/20 07:26 Estimated GFR > 60 ml/min 08/16/20 07:26 BUN/Creatinine Ratio 21 % 08/16/20 07:26 Glucose 394 mg/dL (75-100) H 08/16/20 07:26 POC Glucose 298 mg/dL (70-105) H 08/17/20 08:36 Calcium 8.5 mg/dL (8.4-10.2) 08/16/20 07:26 Total Bilirubin 0.20 mg/dL (0.1-1.2) 08/15/20 17:14 AST 13 units/L (5-40) 08/15/20 17:14 ALT 16 units/L (7-56) 08/15/20 17:14 Alkaline Phosphatase 81 units/L (35-129) 08/15/20 17:14 Total Protein 6.7 g/dL (6.3-8.2) 08/15/20 17:14 Albumin 3.8 g/dL (3.9-5) L 08/15/20 17:14 Albumin/Globulin Ratio 1.3 % 08/15/20 17:14 Triglycerides 197 mg/dL (2-149) H 08/16/20 07:26 Cholesterol 119 mg/dL (50-199) 08/16/20 07:26 LDL Cholesterol Direct 62 mg/dL (50-130) 08/16/20 07:26 HDL Cholesterol 33 mg/dL (40-59) L 08/16/20 07:26 Cholesterol/HDL Ratio 3.60 % 08/16/20 07:26 Reddy/IV: Voiding Method Toilet IV Catheter Type [Right Hand] INT / Saline Lock Active Medications - Current Medications Current Medications: Generic Name Dose Route Start Last Admin Trade Name Freq PRN Reason Stop Dose Admin Acetaminophen 650 mg 08/15/20 22:21 Acetaminophen 325 Mg Tab PO Q4H PRN Pain, Mild (1-3) Apixaban 5 mg 08/16/20 10:00 08/16/20 21:09 Apixaban 5 Mg Tab PO 5 mg BID MG Administration Atorvastatin Calcium 40 mg 08/16/20 22:00 08/16/20 21:09 Atorvastatin 40 Mg Tab PO 40 mg QHS MG Administration Bisacodyl 10 mg 08/15/20 22:21 Bisacodyl 10 Mg Rect Supp MT QDAY PRN Constipation Dextrose 0 ml 08/15/20 22:21 Dextrose 50% In Water (25gm) 50 Ml Syringe IV Q30MIN PRN Hypoglycemia Protocol Hydralazine HCl 10 mg 08/15/20 22:27 08/16/20 21:09 Hydralazine 20 Mg/1 Ml Inj IV 10 mg Q4H PRN Administration Blood Pressure Insulin Glargine 60 units 08/16/20 22:00 08/16/20 21:09 Insulin Glargine 100 Units/Ml SUB-Q 60 units QHS [facility] Administration Insulin Glargine 20 units 08/17/20 10:00 Insulin Glargine 100 Units/Ml SUB-Q QAM [facility] Insulin Human Lispro 10 unit 08/17/20 07:30 Insulin Lispro 100 Unit/Ml Vial 3 Ml SUB-Q AC [facility] Magnesium Hydroxide 30 ml 08/15/20 22:21 Magnesium Hydroxide (Mom) Oral Liqd Udc PO Q4H PRN Constipation Metoclopramide HCl 10 mg 08/15/20 22:21 Metoclopramide 10 Mg Tab PO Q6H PRN Nausea And Vomiting Morphine Sulfate 2 mg 08/15/20 22:21 Morphine 2 Mg/1 Ml Inj IV Q4H PRN Pain, Moderate (4-6) Nifedipine 60 mg 08/16/20 22:00 08/16/20 21:09 Nifedipine Xl 60 Mg Tab PO 60 mg Q12HR [facility] Administration Ondansetron HCl 4 mg 08/15/20 22:21 Ondansetron 4 Mg/2 Ml Inj IV Q8H PRN Nausea And Vomiting Prednisone 60 mg 08/17/20 10:00 Prednisone 20 Mg Tab PO QDAY MG Promethazine HCl 25 mg 08/15/20 22:21 Promethazine 25 Mg Rect Supp MT Q6H PRN Nausea And Vomiting Sodium Chloride 10 ml 08/15/20 22:21 Sodium Chloride 0.9% 10 Ml Flush Syringe IV PRN PRN LINE FLUSH Sodium Chloride 10 ml 08/16/20 10:00 08/16/20 21:09 Sodium Chloride 0.9% 10 Ml Flush Syringe IV 10 ml BID MG Administration Nutrition/Malnutrition Assess - Dietary Evaluation Nutrition/Malnutrition Findings: Nutrition Notes Start: 08/16/20 11:58 Freq: Status: Active Protocol: Document 08/16/20 11:58 NOY (Rec: 08/16/20 12:03 NOY [id number]) Nutrition Notes Need for Assessment generated from: MD Order,Education Initial or Follow up Brief Note Current Diagnosis Diabetes,Hypertension,Stroke Other Pertinent Diagnosis Hypertensive emergency Current Diet Cardiac/Consistent CHO Labs/Tests BG 288, 394 TG 197 HDL 33 Pertinent Medications reviewed Height 6 ft 5 in Weight 186.6 kg [place] Body Weight (kg) 94.54 BMI 48.7 Weight Status Morbidly Obese Subjective/Other Information RD consulted for NTR recommendations and diet education. BP upon admission was 220/131. BG also elevated . Pt already receiving recommended diet . Burn Absent Trauma Absent Minimum of two criteria No Is patient on ventilator? No Is Patient Ambulatory and/or Out of Bed Yes REE-(Hitchcock-St. Jeor-ambulatory/OOB) [ 3735.394 NUTR.[id number]] Kcal/Kg value to use for calculation 13 Approximate Energy Requirements Using 2426 kcal/Kg Calculation Used for Recommendations Kcal/kg Additional Notes Pro needs 0.8-1g/kg adjBW: 112 -141g/day Fluid needs 1ml/kcal Nutrition Intervention Follow-Up By: 08/20/20 Additional Comments F/U: diet education needs, intakes
[2020-08-17] MEDS ORDERED: INSULIN GLARGINE 100 UNITS/ML SUB-Q SCH (10:00)
--- NOTE | 2020-08-17 13:53 | Vascular Lab Report ---
BILATERAL CAROTID DOPPLER ULTRASOUND INDICATION : stroke TECHNIQUE: Grayscale and color Doppler imaging performed through the neck. COMPARISON: None FINDINGS: Right: There is no significant atherosclerotic disease. Peak systolic velocity in the CCA is 94 cm/ s with end-diastolic velocity of 13 cm/s. Peak systolic velocity in the proximal ICA is 82 cm/s with end-diastolic velocity of 23 cm/s. ICA to CCA ratio is less than 2. There is antegrade flow in the E CA and the vertebral artery. Left: There is no significant atherosclerotic disease. Peak systolic velocity in the CCA is 100 cm/s with end-diastolic velocity of 16 cm/s. Peak systolic velocity in the proximal ICA is 96 cm/s with en d-diastolic velocity of 9 cm/s. ICA to CCA ratio is less than 2. There is antegrade flow in the ECA and the vertebral artery. IMPRESSION: No hemodynamically significant stenosis by NASCET criteria. Doppler velocities indicate l ess than 50% luminal narrowing bilaterally. Signer Name: Kenji Lazcano Jr, MD Signed: 08/17/2020 1:48 PM Workstation Name: [id number]
--- NOTE | 2020-08-17 14:29 | Consultation ---
History of Present Illness Consult date: 08/17/20 Reason for Consult: CVA Chief complaint: Stroke History of present illness: 45 yo male htn, dm, PE (on Eliquis), who presented initially with a headache, right facial droop, a sense of right facial numbness with slurred speech. Seen by teleneurology and no intervention in terms of tPA or DICK. Patient denies any involvement of the extremities or changes in his primary sense. Past History Past Medical History: diabetes, hypertension Past Surgical History: No surgical history Social history: no significant social history Family history: no significant family history Medications and Allergies Allergies Allergy/AdvReac Type Severity Reaction Status Date / Time aspirin AdvReac Nausea Verified 04/10/18 09:22 Home Medications Medication Instructions Recorded Confirmed Last Taken Type Cyclobenzaprine [Flexeril] 10 mg PO QHS PRN #10 tablet 04/10/18 08/16/20 Unknown Rx Ibuprofen [Motrin] 600 mg PO Q8H PRN #30 tablet 04/10/18 08/16/20 Unknown Rx Eliquis 5 mg PO BID 08/16/20 08/16/20 08/15/20 08:00 History 5 mg Insulin Aspart (Nf) [Novolog] 10 unit SQ AC 08/16/20 08/16/20 2 Days Ago History ~08/14/20 Insulin Detemir [Levemir VIAL] 60 unit SQ QHS 08/16/20 08/16/20 3 Days Ago History ~08/13/20 Insulin Detemir [Levemir] 10 unit SQ QAM 08/16/20 08/16/20 2 Days Ago History ~08/14/20 Active Meds: Active Medications Acetaminophen (Acetaminophen 325 Mg Tab) 650 mg PO Q4H PRN PRN Reason: Pain, Mild (1-3) Apixaban (Apixaban 5 Mg Tab) 5 mg PO BID [facility] Last Admin: 08/17/20 09:04 Dose: 5 mg Documented by: Atorvastatin Calcium (Atorvastatin 40 Mg Tab) 40 mg PO QHS [facility] Last Admin: 08/16/20 21:09 Dose: 40 mg Documented by: Bisacodyl (Bisacodyl 10 Mg Rect Supp) 10 mg [place] QDAY PRN PRN Reason: Constipation Dextrose (Dextrose 50% In Water (25gm) 50 Ml Syringe) 0 ml IV Q30MIN PRN; Protocol PRN Reason: Hypoglycemia Hydralazine HCl (Hydralazine 20 Mg/1 Ml Inj) 10 mg IV Q4H PRN PRN Reason: Blood Pressure Last Admin: 08/16/20 21:09 Dose: 10 mg Documented by: Insulin Glargine (Insulin Glargine 100 Units/Ml) 60 units SUB-Q QHS [facility] Last Admin: 08/16/20 21:09 Dose: 60 units Documented by: Insulin Glargine (Insulin Glargine 100 Units/Ml) 20 units SUB-Q QAM [facility] Last Admin: 08/17/20 09:06 Dose: 20 units Documented by: Insulin Human Lispro (Insulin Lispro 100 Unit/Ml Vial 3 Ml) 10 unit SUB-Q AC [facility] Last Admin: 08/17/20 11:40 Dose: 10 unit Documented by: Magnesium Hydroxide (Magnesium Hydroxide (Mom) Oral Liqd Udc) 30 ml PO Q4H PRN PRN Reason: Constipation Metoclopramide HCl (Metoclopramide 10 Mg Tab) 10 mg PO Q6H PRN PRN Reason: Nausea And Vomiting Morphine Sulfate (Morphine 2 Mg/1 Ml Inj) 2 mg IV Q4H PRN PRN Reason: Pain, Moderate (4-6) Nifedipine (Nifedipine Xl 60 Mg Tab) 60 mg PO Q12HR [facility] Last Admin: 08/17/20 09:06 Dose: 60 mg Documented by: Ondansetron HCl (Ondansetron 4 Mg/2 Ml Inj) 4 mg IV Q8H PRN PRN Reason: Nausea And Vomiting Prednisone (Prednisone 20 Mg Tab) 60 mg PO QDAY [facility] Last Admin: 08/17/20 09:04 Dose: 60 mg Documented by: Promethazine HCl (Promethazine 25 Mg Rect Supp) 25 mg [place] Q6H PRN PRN Reason: Nausea And Vomiting Sodium Chloride (Sodium Chloride 0.9% 10 Ml Flush Syringe) 10 ml IV PRN PRN PRN Reason: LINE FLUSH Sodium Chloride (Sodium Chloride 0.9% 10 Ml Flush Syringe) 10 ml IV BID [facility] Last Admin: 08/17/20 09:07 Dose: 10 ml Documented by: Review of Systems All systems: negative (as per HPI;) Physical Examination - Vital Signs Vital Signs: Vital Signs Temp Pulse Resp BP Pulse Ox 98.4 F 88 18 220/131 99 08/15/20 17:09 08/15/20 17:09 08/15/20 17:09 08/15/20 17:09 08/15/20 17:09 - Physical Exam Narrative exam: Gen: nad, well-nourished; Head: normocephalic; Eyes: no gaze deviation; no ptosis; ENT: normal vocalization; CVS: warm and well-perfused; Pulm: no respiratory distress; GI: non-distended, protuberant; Ext: no cyanosis at distal extremities; Skin: no acute rash at distal extremities; Heme: no pathologic bruising at distal extremities; Neuro: alert, oriented to name, age, month, year, +mild dysarthria, no aphasia, CN 2 - PERRL, visual mcdermott intact, CN 3, 4, 6 - EOMI, CN 5 - facial sensation symmetric to light touch, CN 7 - right forehead/cheek droop noted (moderate) , CN 8 - hearing grossly intact, CN 9, 10 - uvula midline, CN 11 - shrug symmetric, CN 12 - tongue midline; Motor - at least 4/5 in all exts; Sensory - light touch symmetric, Cerebellar - fnf /hts intact, Gait - deferred secondary to fall risk; NIHSS (1a.) Level of Consciousness:0 (1b.) LOC Questions:0 (1c.) LOC Commands:0 (2.) Best Gaze:0 (3.) Visual:0 (4.) Facial Palsy:2 (5a.) Motor Arm, Left:0 (5b.) Motor Arm, Right:0 (6a.) Motor Leg, Left:0 (6b.) Motor Leg, Right:0 (7.) Limb Ataxia:0 (8.) Sensory:0 (9.) Best Language:0 (10.) Dysarthria:1 (11.) Extinction and Inattention:0 NIHSS Total Score: 3 Results - Laboratory Findings CBC and BMP: 08/16/20 07:26 08/16/20 07:26 Abnormal Lab Findings: Abnormal Labs 08/15/20 08/15/20 08/16/20 17:14 17:14 07:26 [place] % (Auto) 8.5 H 9.4 H PT Sodium Glucose 288 H POC Glucose Albumin 3.8 L Triglycerides HDL Cholesterol 08/16/20 08/16/20 08/16/20 07:26 07:26 07:40 [place] % (Auto) PT 12.1 L Sodium 134 L Glucose 394 H POC Glucose 366 H Albumin Triglycerides 197 H HDL Cholesterol 33 L 08/16/20 08/17/20 08/17/20 20:28 08:36 11:23 [place] % (Auto) PT Sodium Glucose POC Glucose 401 H 298 H 296 H Albumin Triglycerides HDL Cholesterol Assessment and Plan 45 yo male htn, dm, PE (on Eliquis), who presents with a headache, right facial droop, a sense of right facial numbness with slurred speech with a right CN LMN 7 noted on exam. 1. Right facial droop (forehead involvement) - ?Araay's palsy vs. diabetes/hyperglycemia-induced cranial neuropathy vs. ischemic stroke (in the setting of htn, dm but Eliquis compliance). Continue Eliquis for now. Patient is extremely claustrophobic and is requesting outpatient open MRI. CUS/Echo are unrmarkable. CTA Head/Neck w/ wo contrast ordered. Outpatient Open MRI Brain w/ wo contrast in 1-2 weeks. Followup with Neurology in 2 weeks. 2. Hypertension - aim for normotension. 3. DM - aim for euglycemia. 4. Hx of PE - ?hypercoaguable state; pt is on Eliquis. Michele Monique MD Neurology
[2020-08-17] MEDS: hydrALAZINE 20 MG/1 ML INJ IV PRN (16:22)
[2020-08-18 08:08] VITALS: BP 130/93
[2020-08-18] MEDS: predniSONE 20 MG TAB PO SCH (10:05)
[2020-08-18] MEDS: APIXABAN 5 MG TAB PO SCH (10:05)
[2020-08-18] MEDS: NIFEdipine XL 60 MG TAB PO SCH (10:05)
[2020-08-18] MEDS: INSULIN GLARGINE 100 UNITS/ML SUB-Q SCH (10:05)
[2020-08-18] MEDS: INSULIN LISPRO 100 UNIT/ML VIAL 3 mL SUB-Q SCH ×2 (10:06→14:00)
--- NOTE | 2020-08-18 13:35 | Discharge Summary ---
Providers - Providers Date of Admission: 08/15/20 22:34 Date of discharge: 08/18/20 Attending physician: BASIA CABA 08/15/20 Consult to Physician [CONS] Routine Comment: Consulting Provider: RAFI CAMPBELL Physician Instructions: Reason For Exam: CVA 08/15/20 22:22 Consult to Dietitian/Nutrition [CONS] Routine Physician Instructions: Reason For Exam: Reason for Consult: Nutrition Recommendations Reason for Consult: Diet education Occupational Therapy Evaluate and Treat [CONS] Routine Comment: Reason For Exam: Neuro deficits Physical Therapy Evaluation and Treat [CONS] Routine Comment: Reason For Exam: Neuro deficits 08/15/20 22:23 Speech Therapy Evaluation and Treat [CONS] Routine Reason For Exam: swallow eval Primary care physician: JUDICIAL ADMINISTRATIVE ASSISTANT Hospitalization Condition: Critical Hospital course: 45-year-old male with known history of hypertension and diabetes mellitus presenting to the emergency room today complaining of headache, right-sided facial numbness and pain and difficulty speaking. Patient indicates a speech has been slurred . Symptoms have been ongoing for the past 48 hours. He denies any fever or chills, no chest pain or shortness of breath, no nausea vomiting, no blurry vision, no diaphoresis. Patient denies any sick contacts and no recent travel, denies any contact with anyone with COVID-19. Upon arrival in the emergency room today blood pressure was elevated. He has been compliant with his medications and also indicates that he follows up with his primary care physician regularly. Work-up in the emergency room today CT scan of the head is unremarkable. Patient was evaluated by the teleneurologist and recommendation is to have patient worked up for CVA. Hospital course Patient was seen by neurologist who suggested outpatient MRI as he is very claustrophobic. He has slight improvement in his speech. He has been advised to have an outpatient open MRI performed. CTA head and neck also advised but he patient refuses. As patient is refusing, he will be discharged to follow-up with a neurologist in the office. He has a PCP who will see him in a week for arrangement of open MRI/MRA brain. His blood pressure medications have been adjusted which he will continue for now. He will be discharged on prednisone 60 mg daily which be tapered afterwards. Statin has been ordered. He is very eager to be discharged today. He agrees with plan. Disposition: DC- TO HOME OR SELFCARE Time spent for discharge: 32 minutes - Discharge Diagnoses (1) Araya's palsy Status: Acute Core Measure Documentation - Palliative Care Palliative Care/ Comfort Measures: Not Applicable - Core Measures Any of the following diagnoses?: none Exam - Physical Exam Narrative exam: VITAL SIGNS: Reviewed. GENERAL: Awake HEAD: No signs of head trauma. EYES: Pupils are equal. Extraocular motions intact. MOUTH: Oropharynx is normal. NECK: No adenopathy, no JVD. CHEST: Chest with diminished breath sounds bilaterally. No wheezes, rales, or rhonchi. CARDIAC: normal S1 and S2, without murmurs, gallops, or rubs. ABDOMEN: Soft, non tender and non distended. No rebound or guarding, and no masses palpated. Bowel Sounds normal. MUSCULOSKELETAL: No edema NEUROLOGIC EXAM: Alert and oriented x3. No focal neurologic deficits SKIN: No obvious lesions - Constitutional Vitals: Temp Pulse Resp BP Pulse Ox 98.4 F 96 H 20 130/93 95 08/18/20 07:39 08/18/20 07:39 08/18/20 07:39 08/18/20 07:39 08/18/20 07:39 General appearance: Present: no acute distress, well-nourished - EENT Eyes: Present: PERRL ENT: hearing intact, clear oral mucosa - Neck Neck: Present: supple, normal ROM - Respiratory Respiratory effort: normal Respiratory: bilateral: CTA - Cardiovascular Heart Sounds: Present: S1 & S2. Absent: rub, click - Extremities Extremities: pulses symmetrical, No edema Peripheral Pulses: within normal limits - Abdominal General gastrointestinal: Present: soft, non-tender, non-distended, normal bowel sounds Male genitourinary: Present: normal - Integumentary Integumentary: Present: clear, warm, dry - Musculoskeletal Musculoskeletal: gait normal, strength equal bilaterally - Psychiatric Psychiatric: appropriate mood/affect, intact judgment & insight - Neurologic Neurologic: moves all extremities, other (right facial droop. ) Plan Activity: no restrictions Additional Instructions: Continue prednisone 60 mg daily for 4 days then taper to 50mg on 07/22, 40 mg on 07/23, 30 mg on 07/24, 20 mg on 07/25 and 10 mg on 07/26. Follow-up with PCP in 1 week. He will need to have an open MRI and MRA brain performed for further evaluation. Follow-up with neurology in 1 week. Continue atorvastatin as prescribed Follow up with: PRIMARY CARE, [Primary Care Provider] - 3-5 Days KENNA HART MD [Staff Physician] - 7 Days Prescriptions: AtorvaSTATin [Lipitor] 40 mg PO QHS #30 tablet predniSONE [Deltasone] 60 mg PO QDAY #20 tab NIFEdipine XL [Procardia Xl] 60 mg PO Q12HR #60 tablet
--- NOTE | 2020-08-18 13:40 | Progress Note ---
Assessment and Plan Assessment and plan: CVA. Refuses MRI brain and CTA head and neck. Plan to have open MRI as outpatient. He will follow-up with a neurologist ? Araya's palsy. Continue prednisone. Will taper at discharge Accelerated hypertension. Blood pressure is better controlled. Continue Procardia 60 mg p.o. twice daily 08/17/2020. Patient with much better control blood pressure this morning. Continue Procardia. Monitor BP closely. Prednisone 60 mg initiated for ? Araya's palsy. Continue stroke work-up. Follow-up carotid Doppler and echocardiogram. Patient refuses MRI because of claustrophobia. However, patient amenable to CTA head and neck. Neurology consultation pending 08/18/2020. Blood pressure improved. Still refusing MRI brain. Plan to have an MRI performed as outpatient due to social phobia. Awaiting CTA head and neck which patient already refused yesterday. 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 On prednisone. Awaiting neurology reevaluation Patient still refused CT head and neck. Patient requesting to be discharged. It is not clear if patient actually had a CVA or Araya's palsy though CVA is less likely as patient has no extremity weakness. Patient will be discharged on prednisone 60 mg daily which he will taper by 10 mg every day for treatment of Araya's palsy. He will follow-up with his PCP for event of an MRI of the brain to rule out any CVA. He will continue his Eliquis. History Interval history: Refuses MRI due to claustrophobia. Awaiting CTA head and neck - He refused yesterday- not able to lay flat due to chronic back pain Hospitalist Physical - Physical exam Narrative exam: VITAL SIGNS: Reviewed. GENERAL: Awake HEAD: No signs of head trauma. EYES: Pupils are equal. Extraocular motions intact. MOUTH: Oropharynx is normal. NECK: No adenopathy, no JVD. CHEST: Chest with diminished breath sounds bilaterally. No wheezes, rales, or rhonchi. CARDIAC: normal S1 and S2, without murmurs, gallops, or rubs. ABDOMEN: Soft, non tender and non distended. No rebound or guarding, and no masses palpated. Bowel Sounds normal. MUSCULOSKELETAL: No edema NEUROLOGIC EXAM: Alert and oriented x3. No focal neurologic deficits SKIN: No obvious lesions - Constitutional Vitals: Temp Pulse Resp BP Pulse Ox 98.4 F 96 H 20 130/93 95 08/18/20 07:39 08/18/20 07:39 08/18/20 07:39 08/18/20 07:39 08/18/20 07:39 Results - Labs CBC & Chem 7: 08/16/20 07:26 08/16/20 07:26 Labs: Laboratory Last Values WBC 6.1 K/mm3 (4.5-11.0) 08/16/20 07:26 RBC 4.65 M/mm3 (3.65-5.03) 08/16/20 07:26 Hgb 13.2 gm/dl (11.8-15.2) 08/16/20 07:26 Hct 39.2 % (35.5-45.6) 08/16/20 07:26 MCV 84 fl (84-94) 08/16/20 07:26 MCH 28 pg (28-32) 08/16/20 07:26 MCHC 34 % (32-34) 08/16/20 07:26 RDW 14.4 % (13.2-15.2) 08/16/20 07:26 Plt Count 185 K/mm3 (140-440) 08/16/20 07:26 Lymph % (Auto) 26.2 % (13.4-35.0) 08/16/20 07:26 Starke % (Auto) 9.4 % (0.0-7.3) H 08/16/20 07:26 Eos % (Auto) 1.1 % (0.0-4.3) 08/16/20 07:26 Baso % (Auto) 0.5 % (0.0-1.8) 08/16/20 07:26 Lymph # (Auto) 1.6 K/mm3 (1.2-5.4) 08/16/20 07:26 Starke # (Auto) 0.6 K/mm3 (0.0-0.8) 08/16/20 07:26 Eos # (Auto) 0.1 K/mm3 (0.0-0.4) 08/16/20 07:26 Baso # (Auto) 0.0 K/mm3 (0.0-0.1) 08/16/20 07:26 Seg Neutrophils % 62.8 % (40.0-70.0) 08/16/20 07:26 Seg Neutrophils # 3.8 K/mm3 (1.8-7.7) 08/16/20 07:26 PT 12.1 Sec. (12.2-14.9) L 08/16/20 07:26 INR 0.91 (0.87-1.13) 08/16/20 07:26 APTT 30.0 Sec. (24.2-36.6) 08/15/20 20:49 Sodium 134 mmol/L (137-145) L 08/16/20 07:26 Potassium 4.5 mmol/L (3.6-5.0) 08/16/20 07:26 Chloride 98.6 mmol/L (98-107) 08/16/20 07:26 Carbon Dioxide 27 mmol/L (22-30) 08/16/20 07:26 Anion Gap 13 mmol/L 08/16/20 07:26 BUN 17 mg/dL (9-20) 08/16/20 07:26 Creatinine 0.8 mg/dL (0.8-1.3) 08/16/20 07:26 Estimated GFR > 60 ml/min 08/16/20 07:26 BUN/Creatinine Ratio 21 % 08/16/20 07:26 Glucose 394 mg/dL (75-100) H 08/16/20 07:26 POC Glucose 301 mg/dL (70-105) H 08/18/20 12:29 Calcium 8.5 mg/dL (8.4-10.2) 08/16/20 07:26 Total Bilirubin 0.20 mg/dL (0.1-1.2) 08/15/20 17:14 AST 13 units/L (5-40) 08/15/20 17:14 ALT 16 units/L (7-56) 08/15/20 17:14 Alkaline Phosphatase 81 units/L (35-129) 08/15/20 17:14 Total Protein 6.7 g/dL (6.3-8.2) 08/15/20 17:14 Albumin 3.8 g/dL (3.9-5) L 08/15/20 17:14 Albumin/Globulin Ratio 1.3 % 08/15/20 17:14 Triglycerides 197 mg/dL (2-149) H 08/16/20 07:26 Cholesterol 119 mg/dL (50-199) 08/16/20 07:26 LDL Cholesterol Direct 62 mg/dL (50-130) 08/16/20 07:26 HDL Cholesterol 33 mg/dL (40-59) L 08/16/20 07:26 Cholesterol/HDL Ratio 3.60 % 08/16/20 07:26 - Diagnostic Impressions Diagnostic Impressions: Echocardiogram 08/15/20 22:24 Transthoracic Echocardiogram Indication: Stroke BP: 151/78 Conclusions *Global left ventricular systolic function is normal. *Moderate concentric left ventricular hypertrophy is observed. *The estimated ejection fraction is 55-60%. *The right ventricular global systolic function is normal. *A patent foramen ovale is not demonstrated by agitated saline contrast. *There is no evidence of aortic regurgitation. *There is no evidence of mitral regurgitation. *There is no evidence of tricuspid valve regurgitation. *There is no evidence of pulmonic regurgitation. Findings Left Ventricle: The left ventricular chamber size is normal. Moderate concentric left ventricular hypertrophy is observed. Global left ventricular wall motion and contractility are within normal limits. Global left ventricular systolic function is normal. The estimated ejection fraction is 55-60%. Normal left ventricular diastolic filling is observed. Left Atrium: The left atrium is moderately dilated. Right Ventricle: The right ventricle is mildly dilated. The right ventricular global systolic function is normal. Right Atrium: The right atrium is mildly dilated. The interatrial septum appears normal. A patent foramen ovale is not demonstrated by agitated saline contrast. Aortic Valve: The aortic valve structure is normal. There is no evidence of aortic regurgitation. There is no evidence of aortic stenosis. Mitral Valve: The mitral valve leaflets appear normal. There is no evidence of mitral regurgitation. There is no evidence of mitral stenosis. Tricuspid Valve: The tricuspid valve leaflets are normal. There is no evidence of tricuspid valve regurgitation. There is no tricuspid stenosis. Pulmonic Valve: The pulmonic valve appears normal. There is no evidence of pulmonic regurgitation. There is no pulmonic stenosis. Pericardium: There is no pericardial effusion. Aorta: There is no dilatation of the ascending aorta. There is no dilatation of the aortic root. Measurements Chambers 2D Name Value Normal Range RVIDd (AP) 2D 3.18 cm (0.9 - 2.6) IVSd (2D) 1.53 cm (0.6 - 1.1) LVPWd (2D) 1.61 cm (0.6 - 1.1) IVS:LVPW ratio (2D) 0.95 ratio - LVIDd (2D) 4.97 cm (3.7 - 5.6) LVIDs (2D) 2.88 cm (2 - 3.8) LV FS (Teichholz) (2D) 42.1 % - LV FS (cube) (2D) 42.1 % - EF Teichholz (2D) 72.9 % - Ao root diameter (2D) 3.1 cm (2 - 3.7) LA dimension (AP) 2D 5.3 cm (1.9 - 4) LA:Ao ratio (2D) 1.71 ratio - Volumes/Mass Name Value Normal Range LA ESV SP 4CH (MOD) 76 ml - LA ESV SP 2CH (MOD) 102 ml - LA ESV BP (MOD) 88 ml - LA ESV BP (MOD) index 28.9 ml/m2 - Diastolic/Systolic Function Name Value Normal Range MV E-wave Vmax 0.74 m/sec - MV A-wave Vmax 1.06 m/sec - MV E:A ratio 0.7 ratio - LV septal e' Vmax 0.06 m/sec - LV lateral e' Vmax 0.07 m/sec - LV E:e' septal ratio 11.6 ratio - LV E:e' lateral ratio 11.2 ratio - Aortic Valve Name Value Normal Range AV VTI 27.7 cm - AV mean gradient 5 mmHg - LVOT diameter 2.4 cm - LVOT VTI 19.4 cm - LVOT mean gradient 2 mmHg - SV LVOT 88 ml - ARIELLA (continuity VTI) 3.17 cm2 - Pulmonic Valve/Qp:Qs Name Value Normal Range PV Vmax 0.96 m/sec - PV peak gradient 4 mmHg - Reddy/IV: Voiding Method Toilet IV Catheter Type [Right INT / Saline Lock Antecubital] IV Catheter Type [Right Hand] INT / Saline Lock Active Medications - Current Medications Current Medications: Generic Name Dose Route Start Last Admin Trade Name Freq PRN Reason Stop Dose Admin Acetaminophen 650 mg 08/15/20 22:21 Acetaminophen 325 Mg Tab PO Q4H PRN Pain, Mild (1-3) Apixaban 5 mg 08/16/20 10:00 08/18/20 10:05 Apixaban 5 Mg Tab PO 5 mg BID MG Administration Atorvastatin Calcium 40 mg 08/16/20 22:00 08/17/20 21:17 Atorvastatin 40 Mg Tab PO 40 mg QHS MG Administration Bisacodyl 10 mg 08/15/20 22:21 Bisacodyl 10 Mg Rect Supp NE QDAY PRN Constipation Dextrose 0 ml 08/15/20 22:21 Dextrose 50% In Water (25gm) 50 Ml Syringe IV Q30MIN PRN Hypoglycemia Protocol Hydralazine HCl 10 mg 08/15/20 22:27 08/17/20 16:22 Hydralazine 20 Mg/1 Ml Inj IV 10 mg Q4H PRN Administration Blood Pressure Insulin Glargine 60 units 08/16/20 22:00 08/17/20 21:17 Insulin Glargine 100 Units/Ml SUB-Q 60 units QHS MG Administration Insulin Glargine 20 units 08/17/20 10:00 08/18/20 10:05 Insulin Glargine 100 Units/Ml SUB-Q 20 units QAM MG Administration Insulin Human Lispro 10 unit 08/17/20 07:30 08/18/20 10:06 Insulin Lispro 100 Unit/Ml Vial 3 Ml SUB-Q 10 unit AC MG Administration Magnesium Hydroxide 30 ml 08/15/20 22:21 Magnesium Hydroxide (Mom) Oral Liqd Udc PO Q4H PRN Constipation Metoclopramide HCl 10 mg 08/15/20 22:21 Metoclopramide 10 Mg Tab PO Q6H PRN Nausea And Vomiting Morphine Sulfate 2 mg 08/15/20 22:21 Morphine 2 Mg/1 Ml Inj IV Q4H PRN Pain, Moderate (4-6) Nifedipine 60 mg 08/16/20 22:00 08/18/20 10:05 Nifedipine Xl 60 Mg Tab PO 60 mg Q12HR MG Administration Ondansetron HCl 4 mg 08/15/20 22:21 Ondansetron 4 Mg/2 Ml Inj IV Q8H PRN Nausea And Vomiting Prednisone 60 mg 08/17/20 10:00 08/18/20 10:05 Prednisone 20 Mg Tab PO 60 mg QDAY MG Administration Promethazine HCl 25 mg 08/15/20 22:21 Promethazine 25 Mg Rect Supp NE Q6H PRN Nausea And Vomiting Sodium Chloride 10 ml 08/15/20 22:21 Sodium Chloride 0.9% 10 Ml Flush Syringe IV PRN PRN LINE FLUSH Sodium Chloride 10 ml 08/16/20 10:00 08/17/20 21:17 Sodium Chloride 0.9% 10 Ml Flush Syringe IV 10 ml BID MG Administration Nutrition/Malnutrition Assess - Dietary Evaluation Nutrition/Malnutrition Findings: Nutrition Notes Start: 08/16/20 11:58 Freq: Status: Active Protocol: Document 08/16/20 11:58 [facility] (Rec: 08/16/20 12:03 NHALL [id number]) Nutrition Notes Need for Assessment generated from: MD Order,Education Initial or Follow up Brief Note Current Diagnosis Diabetes,Hypertension,Stroke Other Pertinent Diagnosis Hypertensive emergency Current Diet Cardiac/Consistent CHO Labs/Tests BG 288, 394 TG 197 HDL 33 Pertinent Medications reviewed Height 6 ft 5 in Weight 186.6 kg [place] Body Weight (kg) 94.54 BMI 48.7 Weight Status Morbidly Obese Subjective/Other Information RD consulted for NTR recommendations and diet education. BP upon admission was 220/131. BG also elevated . Pt already receiving recommended diet . Burn Absent Trauma Absent Minimum of two criteria No Is patient on ventilator? No Is Patient Ambulatory and/or Out of Bed Yes REE-([facility]-ambulatory/OOB) [ 3735.394 [id number]] Kcal/Kg value to use for calculation 13 Approximate Energy Requirements Using 2426 kcal/Kg Calculation Used for Recommendations Kcal/kg Additional Notes Pro needs 0.8-1g/kg adjBW: 112 -141g/day Fluid needs 1ml/kcal Nutrition Intervention Follow-Up By: 08/20/20 Additional Comments F/U: diet education needs, intakes
== END 2020-08-18 15:44 | disposition home or self-care (01) | DRG 74 ==
LOC: ED 16:51 → 4A 22:34 → OBSVTOIN 08-17 11:10 → INTOOBSV 08-17 11:10 → OBSVTOIN 08-18 13:45
PROVIDERS: ADMIT Internal Medicine Geriatric Medicine; ATTEND Internal Medicine
DX: G51.0 Bell's palsy (principal); I16.1 Hypertensive emergency; I10 Essential (primary) hypertension; E11.9 Type 2 diabetes mellitus without complications; F40.240 Claustrophobia; R29.704 NIHSS score 4; Z86.711 Personal history of pulmonary embolism; Z79.01 Long term (current) use of anticoagulants; Z88.6 Allergy status to analgesic agent; Z79.4 Long term (current) use of insulin; Z79.899 Other long term (current) drug therapy
CPT/HCPCS: 36415; 70450; 80048; 80053; 80061; 82962; 85025; 85610; 85730; 93306; 93880; 96374; 96375; G0378; A9270-GY; J0360; J1170; J1815; J2405; J7512